=== PATIENT | female | born 1960 | race Caucasian/White ===

== ENCOUNTER → 2017-03-16 | Outpatient (CLI) | payer BC, OTHER ==
[2017-03-16 20:09] LABS: CREATINE KINASE MB 0.5 NG/ML (<6.6)
== END ==
LOC: LAB 19:37
PROVIDERS: ATTEND Nurse Practitioner Family
DX: R07.9 Chest pain, unspecified (principal); R06.00 Dyspnea, unspecified
CPT/HCPCS: 36415; 82553; 84484

== ENCOUNTER → 2017-03-20 | Outpatient (CLI) | payer BC ==
--- NOTE | 2017-03-20 08:15 | Diagnostic Imaging Report ---
PROCEDURE: CT chest without contrast. TECHNIQUE: Multiple contiguous axial images were obtained through the chest without the use of intravenous contrast. DATE: 03/20/2017. COMPARISON: None. INDICATION: 56-year-old female, lower left chest pain radiating anteriorly and posteriorly for 3 months. No known injury. PROCEDURE: Axial noncontrasted CT images of the chest. Noncontrasted limits the evaluation of the mediastinum and vascular structures. FINDINGS: There is no identified pulmonary nodule. There are mild linear opacities in the right upper lobe posteriorly and lower aspects of the right lower lobe as well as the lingula and left lower lobe most compatible with atelectasis. There is no additional focal airspace consolidation. There is no pneumothorax. There is no pleural effusion. The central airways are patent. The heart is normal in size and contour. There is a right paratracheal lymph node on axial image 16 measuring 7 mm in short axis. There is no identified mediastinal or axillary lymph node which meets CT size criteria for adenopathy. There is cholelithiasis without findings to suggest acute cholecystitis. Additional limited evaluation of the visualized portions of the upper abdomen is unremarkable. The heart is not enlarged. There is no pericardial effusion. There is no identified acute bony abnormality. IMPRESSION: 1. No identified acute cardiopulmonary abnormality. 2. Cholelithiasis without evidence of acute cholecystitis. Dictated by: Dictated on workstation # [id number]
== END ==
LOC: RAD 07:40
PROVIDERS: ATTEND Nurse Practitioner Family
DX: K80.20 Calculus of gallbladder without cholecystitis without obstruction (principal); R07.9 Chest pain, unspecified; R06.00 Dyspnea, unspecified
CPT/HCPCS: 71250

== ENCOUNTER → 2017-03-31 | Outpatient (CLI) | payer BC ==
[~2017-03-31] MED LIST: CATHETER FLUSH 10 ML SYR IV PRN
--- NOTE | 2017-03-31 16:49 | Diagnostic Imaging Report ---
INDICATION: Abdominal pain. TECHNIQUE: The patient was administered 5.4 mCi of technetium 99m Choletec intravenously and imaging over the abdomen was performed. At 60 minutes, patient was given a can of Ensure and gallbladder ejection fraction was calculated. FINDINGS: There is homogeneous uptake of activity by the liver with prompt excretion of activity into the common bile duct and gallbladder. Normal passage of activity into the small bowel is identified. Gallbladder ejection fraction is normal at 45%. IMPRESSION: Normal hepatobiliary scan and gallbladder ejection fraction. Dictated by: Dictated on workstation # [id number]
== END ==
LOC: CARD 11:33
PROVIDERS: ATTEND Nurse Practitioner Family
DX: K80.20 Calculus of gallbladder without cholecystitis without obstruction (principal)
CPT/HCPCS: 78227

== ENCOUNTER → 2019-05-17 | Outpatient (CLI) | payer BC | LOC: LABNPT 12:02 | PROVIDERS: ATTEND Internal Medicine | DX: J11.1 Influenza due to unidentified influenza virus with other respiratory manifestations (principal) | CPT/HCPCS: 87430; 87635; 87804 ==

== ENCOUNTER → 2019-11-01 | Outpatient (CLI) | payer BC | LOC: RAD 15:10 | PROVIDERS: ATTEND Internal Medicine | DX: Z53.9 Procedure and treatment not carried out, unspecified reason (principal); M46.01 Spinal enthesopathy, occipito-atlanto-axial region; R51 Headache ==